=== PATIENT | male | born 1955 | race Caucasian/White ===

== ENCOUNTER 2024-08-02 15:11 | Outpatient (CLI) | payer OTHER | END 2024-08-02 15:12 | disposition home or self-care (01) | LOC: CSHMRI 15:11 | PROVIDERS: ATTEND Family Medicine | DX: R41.89 Other symptoms and signs involving cognitive functions and awareness (principal); R41.3 Other amnesia; R90.82 White matter disease, unspecified; J32.0 Chronic maxillary sinusitis; J32.2 Chronic ethmoidal sinusitis | CPT/HCPCS: 70551 ==